=== PATIENT | male | born 2000 | race Caucasian/White ===

== ENCOUNTER 2024-04-11 00:49 | Emergency (ER) | payer SELFPAY ==
--- NOTE | ~2024-04-11 | US_ITS ---
EXAMINATION: US scrotum doppler DATE: 04/11/2024 03:10 INDICATION: Right testicular pain. TECHNIQUE: Grayscale and Doppler ultrasound images of the testes were obtained. COMPARISON: None. FINDINGS: The right testis measures 4.8 x 2.2 x 3.4 cm. The left testis measures 5.0 x 2.3 x 3.0 cm. There is normal vascular flow to both testes. The right epididymis is normal with normal vascular merna w. The left epididymis is normal with normal vascular flow. There is no varicocele or hydrocele. IMPRESSION: 1. Normal testes. Reviewed, dictated and finalized at location A. IMPRESSION: 1. Normal testes.
[2024-04-11 00:59] VITALS: BP 111/66; PULSE 68; RESP 18; TEMP 36.6; O2SAT 100
[2024-04-11 02:33] LABS: Add Urine Microscopic? YES; Appearance Urine Clear (Clear); Bacteria Urine None Seen /hpf; Bilirubin Urine Negative (Negative); Blood Urine 3+ (Negative); Color Urine Yellow (Yellow); Glucose Urine UA Negative (Negative); Ketones Urine Trace mg/dL (Negative); Leukocyte Esterase Ur Negative LEU/UL (Negative); Nitrate Urine Negative (Negative); Non Pathogenic Casts 0-2; Protein Urine Negative (Negative); RBC Urine >100 /hpf (0-2); Specific Grav Ur 1.024 (1.001-1.035); Squamous Epithelial Cell Urine None Seen /hpf (Few); WBC Urine 0-5 /hpf (0-3); pH Urine 6.5 (5.0-9.0)
[2024-04-11 03:41] VITALS: BP 118/60; PULSE 70; RESP 20; O2SAT 99
--- NOTE | 2024-04-11 04:21 | ED.GENADULT ---
HPI - General Adult General Chief complaint: Urogenital-Male Stated complaint: Right-sided testicle pain Time Seen by Provider: 04/11/24 01:07 History of Present Illness HPI narrative: This is a 23-year-old male presenting ED with chief complaint testicle pain. Patient says that 07 23 he was getting up to take shower and he started the pain in his right testicle. It is achy pain that comes and waves. Is not associated with nausea or vomiting. He is not having flank pain. Patient does not have any dysuria, urinary urgency or frequency. No blood his urine. Patient is sexually active but uses protection. He denies multiple partners and concerned for STDs. Patient does not have painful ejaculation or blood in his semen. Related Data Allergies Allergy/AdvReac Type Severity Reaction Status Date / Time prednisone Allergy Rash Verified 04/11/24 01:01 Exam Narrative: APPEARANCE: No apparent distress. Head: atraumatic. EYES: EOMI, NOSE: Atraumatic NECK: Trachea midline RESPIRATORY: No increased rate of breathing CARDIOVASCULAR: RRR, exam: Normal external genitalia, normal lie, cremasteric reflex intact bilaterally, right testicle with tenderness over the epididymis, no palpable masses ABDOMINAL: Non-distended soft nontender, no CVA tenderness MUSCULOSKELETAl: No obvious deformities NEURO: Alert. Moving 4/4 extremities SKIN:: Warm, dry. Normal color PSYCHIATRIC: Normal affect Course Vital Signs Vital signs: Vital Signs Temperature 97.8 F 04/11/24 00:59 Pulse Rate 68 04/11/24 00:59 Respiratory Rate 18 04/11/24 00:59 Blood Pressure 111/66 04/11/24 00:59 Pulse Oximetry 100 04/11/24 00:59 Oxygen Delivery Room Air 04/11/24 00:59 Temperature 97.8 F 04/11/24 00:59 Pulse Rate 70 04/11/24 03:41 Respiratory Rate 20 04/11/24 03:41 Blood Pressure 118/60 04/11/24 03:41 Pulse Oximetry 99 04/11/24 03:41 Oxygen Delivery Room Air 04/11/24 00:59 Medical Decision Making [facility] Narrative Medical decision making narrative: -Course: 23-year-old male presenting with pain in his right testicle. Exam shows tenderness over the epididymis. Ultrasound negative for signs of torsion or masses. Urine with isolated red blood cells. Patient will be treated for epididymitis. Patient given Urology follow-up to ensure resolution and to assess for other causes of hematuria. Discharged w/ return precautions. -DDX includes but is not limited to: Epididymitis, testicular torsion STD, neoplasm -Independent interpretation of studies: UA with 3+ blood and greater than 100 red blood cells -Interventions: ceftriaxone, levofloxacin, Motrin -Shared decision making / Disposition: Discharged -RX levofloxacin Vital Signs Vital Signs: Vital Signs Temperature 97.8 F 04/11/24 00:59 Pulse Rate 68 04/11/24 00:59 Respiratory Rate 18 04/11/24 00:59 Blood Pressure 111/66 04/11/24 00:59 Pulse Oximetry 100 04/11/24 00:59 Oxygen Delivery Room Air 04/11/24 00:59 Temperature 97.8 F 04/11/24 00:59 Pulse Rate 70 04/11/24 03:41 Respiratory Rate 20 04/11/24 03:41 Blood Pressure 118/60 04/11/24 03:41 Pulse Oximetry 99 04/11/24 03:41 Oxygen Delivery Room Air 04/11/24 00:59 Lab Data Labs: Lab Results 04/11/24 Range/Units 02:22 Urine Color Yellow (Yellow) Urine Appearance Clear (Clear) Urine pH 6.5 (5.0-9.0) Ur Specific Jones 1.024 (1.001-1.035) Urine Protein Negative (Negative) mg/dL Urine Glucose (UA) Negative (Negative) mg/dL Urine Ketones Trace H (Negative) mg/dL Ur Blood (Man) 3+ H (Negative) Urine Nitrate Negative (Negative) Urine Bilirubin Negative (Negative) Urine Urobilinogen 1.0 (<2.0) mg/dL Leukocyte Esterase Rfl Negative (Negative) AMANDA/UL Urine RBC >100 H (0-2) /hpf Urine WBC 0-5 (0-3) /hpf Ur Squamous Epith Cells None seen (Few) /hpf Urine Bacteria None seen /hpf Urine Casts 0-2
[2024-04-11] MEDS: levoFLOXacin 500 MG TABLET PO (04:45)
[2024-04-11] MEDS: cefTRIAXone 1 GM VIAL 0.5 GM IM (04:45)
[2024-04-11] MEDS: IBUPROFEN 400 MG TABLET 800 MG PO (04:45)
[2024-04-11 05:48] LABS: Trichomonas Vag PCR NOT DETECTED (NOT DETECTE)
[2024-04-11 06:13] LABS: Chlamydia trachomatis NOT DETECTED (NOT DETECTE); Neisseria gonorrhoeae PCR NOT DETECTED (NOT DETECTE)
== END 2024-04-11 04:50 | disposition home or self-care (01) ==
PROVIDERS: Emergency Provider Emergency Medicine
DX: N45.1 Epididymitis (principal); Z11.3 Encounter for screening for infections with a predominantly sexual mode of transmission
CPT/HCPCS: 76870; 81001; 87491; 87591; 87661; 93976; 96372; 99284; A9270; J0696